=== PATIENT | male | born 1980 | race Two or more races ===

== ENCOUNTER 2025-06-19 13:54 | Emergency (ER) | payer OTHER ==
[~2025-06-19] VITALS: Ht 162.6 cm; Wt 66.7 kg
[2025-06-19 14:02] VITALS: TEMP 97
[2025-06-19 15:01] LABS: CALCIUM, SERUM 8.4 mg/dL (8.5-10.1); CREATININE 0.6 mg/dL (0.6-1.3); PLATELET COUNT (AUTO) 169 K/uL (150-450); RED BLOOD CELL COUNT(AUTO) 3.52 MIL/uL (4.5-6.0); RED CELL DISTRIBUTION WIDTH 14.6 % (11.5-15.0); SODIUM SERUM 145 mmol/L (136-145); UREA NITROGEN, BLOOD 9 mg/dL (7-18); WHITE BLOOD COUNT (AUTO) 3.5 K/uL (4.3-11.0)
[2025-06-19 15:07] LABS: ASPARTATE AMINOTRANSFERASE 199 U/L (15-37); TOTAL PROTEIN, SERUM 7.5 g/dL (6.4-8.2)
[2025-06-19] MEDS ORDERED: POTASSIUM CL. PREMIX PERIPHER. 50 ML ONE ×2 (15:20→15:54)
[2025-06-19] MEDS ORDERED: Magnesium 1GM/D5W 100ML PREMIX 100 ML IV ONE (15:20)
[2025-06-19] MEDS: Magnesium 1 GM/2 ML VIAL IV ONE (15:30)
[2025-06-19] MEDS: IV NS 0.9% 1,000 ML BAG IV ONE (15:30)
[2025-06-19] MEDS: POTASSIUM CL. PREMIX PERIPHER. 50 ML IV SCH (15:30)
[2025-06-19 15:33] LABS: APPEARANCE,URINE CLEAR (CLEAR); BLOOD, URINE NEGATIVE Ery/uL (NEGATIVE); LEUKOCYTE ESTERASE ,URINE NEGATIVE (NEGATIVE); NITRITE, URINE NEGATIVE (NEGATIVE); UGLUCOSE NEGATIVE (NEGATIVE)
[2025-06-19 15:46] LABS: BARBITURATE, URINE NEGATIVE (NEGATIVE); BENZODIAZEPINE, URINE NEGATIVE (NEGATIVE); CANNABINOID, URINE NEGATIVE (NEGATIVE); COCCAINE, URINE NEGATIVE (NEGATIVE); OPIATE, URINE NEGATIVE (NEGATIVE)
[2025-06-19 15:47] LABS: AMPHETAMINE, URINE POSITIVE (NEGATIVE)
[2025-06-19] MEDS: POTASSIUM CHLORIDE 20 MEQ TAB.PRT.SR PO ONE (17:00)
[2025-06-19 18:28] VITALS: BP 120/80; O2SAT 98
== END 2025-06-19 17:30 | disposition home or self-care (01) ==
LOC: ER 13:57
DX: F10.129 Alcohol abuse with intoxication, unspecified (principal); Z79.899 Other long term (current) drug therapy; Y90.8 Blood alcohol level of 240 mg/100 ml or more
CPT/HCPCS: 99284; 96374; 96361; 85025; 80048; 80076; 81003; 36415; 80143; 80320; 80307; J7030; J3480 ×2; A4223; J3475; G0480